=== PATIENT | female | born 1985 | race Caucasian/White ===

== ENCOUNTER → 2016-06-29 | Outpatient (REF) | payer OTHER | LOC: M LAB REF 09:36 | PROVIDERS: ATTEND Physician Assistant | DX: L03.114 Cellulitis of left upper limb (principal) ==

== ENCOUNTER 2016-07-29 11:45 | Emergency (ER) | payer OTHER ==
[2016-07-29] MEDS ORDERED: KETOROLAC 30 MG/ML VIAL (J1885) As Ordered ONE (12:53)
[2016-07-29] MEDS ORDERED: diphenhydrAMINE INJ 50MG/ML VIAL (J1200) As Ordered ONE (12:53)
[2016-07-29] MEDS ORDERED: METOCLOPRAMIDE INJ 10MG/2ML VIAL (J2765) As Ordered ONE (12:53)
--- NOTE | 2016-07-29 13:29 | REP ---
Head CT without contrast: History: Severe headache. Comparison study: No comparison. CT findings: Bone window settings demonstrate an intact bony calvarium. There is no evidence of skull fracture or incidental bony calvarial lesion. The visualized paranasal sinuses appear clear. No intraorbital abnormality is seen. On soft tissue window setting images; the lateral, third, and fourth ventricles are normal in size and position. Wayne-white differentiation pattern is normal above and below the tentorium. There are is no evidence of intracranial hemorrhage. No mass, edema, infarction, or midline shift is seen. No extra-axial fluid collection is appreciated. Impression: Negative noncontrast head CT. Signed by Aquiles Law MD 07/29/2016 01:21 P
--- NOTE | 2016-07-29 13:51 | EDDOCDS ---
Physician Documentation [facility] Name: Gema Gutierres Age: 31 yrs Sex: Female : 1985 Arrival Date: 07/29/2016 Time: 11:45 Bed I4 / M4 Private MD: [facility] - Adults Disposition: 07/29/16 13:36 Discharged to Home/Self Care. Impression: Headache. - Condition is Stable. - Discharge Instructions: General Headache Without Cause, [id number]. - Prescriptions for etodolac 200 mg Oral Capsule - take 1 capsule by ORAL route 3 times per day; 30 capsule. Robaxin- 750 750 mg Oral Tablet - take 1 tablet by ORAL route every 6 hours As needed; 40 tablet. - Medication Reconciliation, Local Pharmacy Hours form. - Follow up: [facility] - Ad[facility]; When: Call to arrange an appointment; Reason: Further diagnostic work-up, Recheck today's complaints, Continuance of care. - Problem is new. - Symptoms have improved. Historical: - Allergies: BELLADONNA ALKALOIDS (unk); (Hives); Wellbutrin (Hives); Neurontin (mood swings ); - Home Meds: 1. meloxicam 15 mg oral tab 1 tab once daily 2. baclofen 10 mg Oral tab 1 tab HS 3. omeprazole 40 mg Oral cpDR 1 cap once daily 4. cetirizine 10 mg oral tab 1 tab once daily 5. Cymbalta 60 mg Oral cpDR 1 cap once daily 6. Breo Ellipta 200-25 mcg/dose inhalation dsdv 1 puff once daily - PMHx: GERD; Depression; Anxiety; chronic neck pain; - PSHx: ; - Social history: Smoking status: Patient states was never smoker of tobacco. Patient uses No barriers to communication noted, The patient speaks fluent Azeri, Speaks appropriately for age. - Family history: Not pertinent. - : The pt / caregiver states he / she is not on anticoagulants. Home medication list is obtained from the patient. - Exposure Risk Screening:: None identified. 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 1 in. (154.94 cm) (R); Pain 10/; 13:43 BP 125 / 70 RA Sitting (auto/lg); Pulse 70; Resp 20; Temp 97.5(O); Pulse Ox 97% on R/A; bnb Pain 8/10; 11:47 Body Mass Index 40.06 (96.16 kg, 154.94 cm) jrd MDM: 12:44 IV Saline Lock ordered. btw 12:44 Metoclopramide 20 mg IV at 80 mg/hr once over 15 mins ordered. btw 12:44 diphenhydrAMINE 50 mg IVP once ordered. btw 12:44 ketorolac 30 mg IVP once ordered. btw 12:45 CT Head Without Contrast Ordered. EDMS 13:47 Financial registration complete. lg Administered Medications: 13:07 Drug: diphenhydrAMINE 50 mg [diphenhydramine 50 mg/mL injection solution (1 mL)] Route: jmk IVP; Site: right antecubital; 13:35 Follow up: Response: Pain is decreased kc3 13:07 Drug: ketorolac 30 mg [ketorolac 30 mg/mL (1 mL) injection solution (1 mL)] Route: IVP; jmk Site: right antecubital; 13:35 Follow up: Response: Pain is decreased kc3 13:08 Drug: Metoclopramide 20 mg [metoclopramide 5 mg/mL injection solution] Route: IV; Rate: jmk 80 mg/hr; Infused Over: 15 mins; Site: right antecubital; 13:35 Follow up: IV Status: Completed infusion kc3 Signatures: Dispatcher MedHost EDMS Roney Madrigal,Orlando Cheema RN, Reg Reg lg Tatianna SandovalRN RN Raffaele Pedroza PA PA btw Nidhi Call RN RN kc3 MTDD
--- NOTE | 2016-07-29 13:51 | EDDOCDS ---
Nurse's Notes [facility] Name: Gema Gutierres Age: 31 yrs Sex: Female : 1985 Arrival Date: 07/29/2016 Time: 11:45 Bed I4 / M4 Private MD: [facility] - [facility] Diagnosis: Headache Presentation: 07/29 11:51 Presenting complaint: Patient states: Has had severe GUERRERO which started this morning. jo3 Just told PCP that Has are becoming more frequent and more intense. Pt was at work when this one started. This patient has no additional risk factors. Adult Sepsis Screening: The patient does not have new or worsening altered mentation. Patient's respiratory rate is less than 22. Systolic blood pressure is greater than 100. Patient has a qSOFA score of 0- Negative Sepsis Screen. Suicide/Homicide risk assessment- the patient denies having any suicidal and/or homicidal ideations and does not present with any other emotional, behavioral or mental health complaints. 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 Transition of care: patient was not received from another setting of care. 11:51 Acuity: BRIJESH Level 3 jo3 11:51 Method Of Arrival: Walkin/Carried/Asstd jo3 Triage Assessment: 11:57 Headache History: This headache is more severe than any previous headaches the patient jo3 has experienced. General: Appears in no apparent distress, Behavior is appropriate for age, cooperative. HIV screening NA for this visit Offered previously. Neurological: Level of Consciousness is awake, alert, Oriented to person, place, time. 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 meloxicam 15 mg oral tab 1 tab once daily 2. baclofen 10 mg Oral tab 1 tab HS 3. omeprazole 40 mg Oral cpDR 1 cap once daily 4. cetirizine 10 mg oral tab 1 tab once daily 5. Cymbalta 60 mg Oral cpDR 1 cap once daily 6. Breo Ellipta 200-25 mcg/dose inhalation dsdv 1 puff once daily - PMHx: GERD; Depression; Anxiety; chronic neck pain; - PSHx: ; - Social history: Smoking status: Patient states was never smoker of tobacco. Patient uses No barriers to communication noted, The patient speaks fluent [place], Speaks appropriately for age. - Family history: Not pertinent. - : The pt / caregiver states he / she is not on anticoagulants. Home medication list is obtained from the patient. - Exposure Risk Screening:: None identified. Screenin:08 Screening information is obtained from the patient. Fall risk: No risks identified. jmk Assistance ADL's: requires no assistance with activities of daily living. Abuse/DV Screen: The patient / caregiver reports he/she is: not in a situation that causes fear, pain or injury. Nutritional screening: No deficits noted. Advance Directives: Currently, there is no health care proxy. There is no active DNR order. There is no living will. There is no Power of Sfdc Architect. home support is adequate. Assessment: 13:08 General: Appears dramatic presentation. alert and oriented x 3. Indicates pain across jmk forehead that goes into occiptal region. describes 10/10 discomfort, but demeanor does not support.. Neurological: Level of Consciousness is awake, alert, Oriented to person, place, time. 13:49 General: Appears in no apparent distress, comfortable, Behavior is appropriate for age, kc3 cooperative. Pain: Pain currently is 7 out of 10 on a pain scale. Also complains of no other associated symptoms. Neurological: Level of Consciousness is awake, alert, obeys commands. Respiratory: Respiratory effort is even, unlabored. Derm: Skin is pink, warm & dry. Vital Signs: 11:47 BP 153 / 91; Pulse 86; Resp 18; Temp 98.2; Pulse Ox 98% on R/A; Weight 96.16 kg (R); jrd Height 5 ft. 1 in. (154.94 cm) (R); Pain 10/10; 13:43 BP 125 / 70 RA Sitting (auto/lg); Pulse 70; Resp 20; Temp 97.5(O); Pulse Ox 97% on R/A; bnb Pain 8/10; 11:47 Body Mass Index 40.06 (96.16 kg, 154.94 cm) [facility] Vitals: 11:47 Log In Time: July 29, 2016 at 11:40. [facility] ED Course: 11:46 Patient visited by Gio Rico PCA. jrd 11:46 Patient moved to Waiting jrd 11:47 [facility] is Private Physician. jrd 11:48 Patient visited by Gio Rico PCA. jrd 11:48 Patient moved to Pre RCE jrd 11:53 Triage Initiated jo3 11:58 Patient visited by Tatianna Sandoval RN. jo3 12:26 Patient moved to Triage 3 ck1 12:30 Patient visited by Paula Palumbo RN. ck1 12:40 Raffaele Hernandez PA is PHCP. btw 12:40 Varinder Byrne MD is Attending Physician. btw 12:40 Patient visited by Raffaele Hernandez PA. btw 12:45 Patient moved to I4 / M4 ck1 13:11 Inserted saline lock: 20 gauge in right antecubital area. jmk 13:35 Patient visited by Nidhi Call RN. kc3 13:35 [facility] is Referral Physician. btw 13:43 Patient visited by Soraya Navas PCA. bnb 13:50 The patient / caregiver is instructed regarding the plan of care and ED course. kc3 13:50 Discontinued IV lock intact, bleeding controlled, pressure dressing applied, No kc3 redness/swelling at site. No procedures done that require assistance. Administered Medications: 13:07 Drug: diphenhydrAMINE 50 mg [diphenhydramine 50 mg/mL injection solution (1 mL)] Route: jmk IVP; Site: right antecubital; 13:35 Follow up: Response: Pain is decreased kc3 13:07 Drug: ketorolac 30 mg [ketorolac 30 mg/mL (1 mL) injection solution (1 mL)] Route: IVP; jmk Site: right antecubital; 13:35 Follow up: Response: Pain is decreased kc3 13:08 Drug: Metoclopramide 20 mg [metoclopramide 5 mg/mL injection solution] Route: IV; Rate: jmk 80 mg/hr; Infused Over: 15 mins; Site: right antecubital; 13:35 Follow up: IV Status: Completed infusion kc3 Order Results: There are currently no results for this order. Outcome: 13:36 Discharge ordered by Provider. btw 13:50 Discharge Assessment: Patient awake, alert and oriented x 3. No cognitive and/or kc3 functional deficits noted. Patient verbalized understanding of disposition instructions. patient administered narcotics - no. The following High Risk Discharge criteria are identified: None. Discharged to home ambulatory. Condition: stable. Discharge instructions given to patient, Instructed on discharge instructions, follow up and referral plans. medication usage, Demonstrated understanding of instructions, medications, Pt was receptive of discharge instructions/ teaching. Prescriptions given X 2. CT Study completed. Property :Personal belongings accompany Pt. 13:50 Patient left the ED. kc3 Signatures: Roney Madrigal,RN RN Paula MonroyRN RN ck1 Tatianna SandovalRN RN francisco j3 Raffaele Hernandez, KENNETH PA btw Gio Rico, DEFENSIVE DRIVING INSTRUCTOR DEFENSIVE DRIVING INSTRUCTOR jrd Nidhi Call,RN RN kc3 Soraya Navas, DEFENSIVE DRIVING INSTRUCTOR DEFENSIVE DRIVING INSTRUCTOR bnb MTDKarsten
--- NOTE | 2016-07-31 14:52 | EDDOCDS ---
Nurse's Notes [facility] Name: Gema Gutierres Age: 31 yrs Sex: Female : 1985 Arrival Date: 07/29/2016 Time: 11:45 Bed I4 / M4 Private MD: [facility] - Adults Diagnosis: Headache Presentation: 07/29 11:51 Presenting complaint: Patient states: Has had severe GUERRERO which started this morning. jo3 Just told PCP that Has are becoming more frequent and more intense. Pt was at work when this one started. This patient has no additional risk factors. Adult Sepsis Screening: The patient does not have new or worsening altered mentation. Patient's respiratory rate is less than 22. Systolic blood pressure is greater than 100. Patient has a qSOFA score of 0- Negative Sepsis Screen. Suicide/Homicide risk assessment- the patient denies having any suicidal and/or homicidal ideations and does not present with any other emotional, behavioral or mental health complaints. 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 Transition of care: patient was not received from another setting of care. 11:51 Acuity: BRIJESH Level 3 jo3 11:51 Method Of Arrival: Walkin/Carried/Asstd jo3 Triage Assessment: 11:57 Headache History: This headache is more severe than any previous headaches the patient jo3 has experienced. General: Appears in no apparent distress, Behavior is appropriate for age, cooperative. HIV screening NA for this visit Offered previously. Neurological: Level of Consciousness is awake, alert, Oriented to person, place, time. 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 meloxicam 15 mg oral tab 1 tab once daily 2. baclofen 10 mg Oral tab 1 tab HS 3. omeprazole 40 mg Oral cpDR 1 cap once daily 4. cetirizine 10 mg oral tab 1 tab once daily 5. Cymbalta 60 mg Oral cpDR 1 cap once daily 6. Breo Ellipta 200-25 mcg/dose inhalation dsdv 1 puff once daily - PMHx: GERD; Depression; Anxiety; chronic neck pain; - PSHx: ; - Social history: Smoking status: Patient states was never smoker of tobacco. Patient uses No barriers to communication noted, The patient speaks fluent [place] Zealander, Speaks appropriately for age. - Family history: Not pertinent. - : The pt / caregiver states he / she is not on anticoagulants. Home medication list is obtained from the patient. - Exposure Risk Screening:: None identified. Screenin:08 Screening information is obtained from the patient. Fall risk: No risks identified. jmk Assistance ADL's: requires no assistance with activities of daily living. Abuse/DV Screen: The patient / caregiver reports he/she is: not in a situation that causes fear, pain or injury. Nutritional screening: No deficits noted. Advance Directives: Currently, there is no health care proxy. There is no active DNR order. There is no living will. There is no Power of Conservator Artifacts. home support is adequate. Assessment: 13:08 General: Appears dramatic presentation. alert and oriented x 3. Indicates pain across jmk forehead that goes into occiptal region. describes 10/10 discomfort, but demeanor does not support.. Neurological: Level of Consciousness is awake, alert, Oriented to person, place, time. 13:49 General: Appears in no apparent distress, comfortable, Behavior is appropriate for age, kc3 cooperative. Pain: Pain currently is 7 out of 10 on a pain scale. Also complains of no other associated symptoms. Neurological: Level of Consciousness is awake, alert, obeys commands. Respiratory: Respiratory effort is even, unlabored. Derm: Skin is pink, warm & dry. Vital Signs: 11:47 BP 153 / 91; Pulse 86; Resp 18; Temp 98.2; Pulse Ox 98% on R/A; Weight 96.16 kg (R); jrd Height 5 ft. 1 in. (154.94 cm) (R); Pain 10/10; 13:43 BP 125 / 70 RA Sitting (auto/lg); Pulse 70; Resp 20; Temp 97.5(O); Pulse Ox 97% on R/A; bnb Pain 8/10; 11:47 Body Mass Index 40.06 (96.16 kg, 154.94 cm) [facility] Vitals: 11:47 Log In Time: July 29, 2016 at 11:40. [facility] ED Course: 11:46 Patient visited by Gio Rico PCA. jrd 11:46 Patient moved to Waiting jrd 11:47 [facility] is Private Physician. jrd 11:48 Patient visited by Gio Rico PCA. jrd 11:48 Patient moved to Pre RCE jrd 11:53 Triage Initiated jo3 11:58 Patient visited by Tatianna Sandoval,DEBBIE. jo3 12:26 Patient moved to Triage 3 ck1 12:30 Patient visited by Paula Palumbo,DEBBIE. ck1 12:40 Raffaele Hernandez PA is PHCP. btw 12:40 Varinder Byrne MD is Attending Physician. btw 12:40 Patient visited by Raffaele Hernandez PA. btw 12:45 Patient moved to I4 / M4 ck1 13:11 Inserted saline lock: 20 gauge in right antecubital area. jmk 13:35 Patient visited by Nidhi Call RN. kc3 13:35 [facility] is Referral Physician. btw 13:43 Patient visited by Soraya Navas PCA. bnb 13:50 The patient / caregiver is instructed regarding the plan of care and ED course. kc3 13:50 Discontinued IV lock intact, bleeding controlled, pressure dressing applied, No kc3 redness/swelling at site. No procedures done that require assistance. 14:18 CT Head Without Contrast Returned. EDMS 15:03 T-Sheet-- Draft Copy was scanned into ViewCast and attached to record. gb 15:22 Patient name changed from Gema\S\\S\Bhavik\S\ to Gema\S\Roney\S\Bhavik. EDMS 15:27 [facility] Payment Agreement was scanned into ViewCast and attached to record. lg Administered Medications: 13:07 Drug: diphenhydrAMINE 50 mg [diphenhydramine 50 mg/mL injection solution (1 mL)] Route: chauncey IVP; Site: right antecubital; 13:35 Follow up: Response: Pain is decreased kc3 13:07 Drug: ketorolac 30 mg [ketorolac 30 mg/mL (1 mL) injection solution (1 mL)] Route: IVP; chauncey Site: right antecubital; 13:35 Follow up: Response: Pain is decreased kc3 13:08 Drug: Metoclopramide 20 mg [metoclopramide 5 mg/mL injection solution] Route: IV; Rate: jmk 80 mg/hr; Infused Over: 15 mins; Site: right antecubital; 13:35 Follow up: IV Status: Completed infusion kc3 Order Results: Radiology Order: CT Head Without Contrast Test: CT Head Without Contrast REASON FOR EXAMINATION: Worst GUERRERO of life; Head CT without contrast:; ; History: Severe headache.; ; Comparison study: No comparison.; ; CT findings: Bone window settings demonstrate an intact bony calvarium. There; is no evidence of skull fracture or incidental bony calvarial lesion. The; visualized paranasal sinuses appear clear. No intraorbital abnormality is seen.; On soft tissue window setting images; the lateral, third, and fourth ventricles; are normal in size and position. Wayne-white differentiation pattern is normal; above and below the tentorium. There are is no evidence of intracranial; hemorrhage. No mass, edema, infarction, or midline shift is seen. No; extra-axial fluid collection is appreciated.; ; Impression:; ; Negative noncontrast head CT.; ; ; Signed by; Aquiles Law MD 07/29/2016 01:21 P; Outcome: 13:36 Discharge ordered by Provider. btw 13:50 Discharge Assessment: Patient awake, alert and oriented x 3. No cognitive and/or kc3 functional deficits noted. Patient verbalized understanding of disposition instructions. patient administered narcotics - no. The following High Risk Discharge criteria are identified: None. Discharged to home ambulatory. Condition: stable. Discharge instructions given to patient, Instructed on discharge instructions, follow up and referral plans. medication usage, Demonstrated understanding of instructions, medications, Pt was receptive of discharge instructions/ teaching. Prescriptions given X 2. CT Study completed. Property :Personal belongings accompany Pt. 13:50 Patient left the ED. kc3 Signatures: Dispatcher MedHost EDMS Roney Madrigal,RN RN Sonia London, Reg Reg gb Orlando Wheeler, Reg Reg lg Paula PalumboRN RN ck1 Tatianna SandovalRN RN francisco j3 Raffaele Hernandez PA PA btw Gio Rico, MORTEZA JEEPER OPERATOR d Nidhi Call RN RN kc3 Soraya Navas, JEEPER OPERATOR JEEPER OPERATOR bnb Chart Complete MTDD
--- NOTE | 2016-07-31 14:52 | EDDOCDS ---
Physician Documentation [facility] Name: Gema Gutierres Age: 31 yrs Sex: Female : 1985 Arrival Date: 07/29/2016 Time: 11:45 Bed I4 / M4 Private MD: [facility] - [facility] Disposition: 07/29/16 13:36 Discharged to Home/Self Care. Impression: Headache. - Condition is Stable. - Discharge Instructions: General Headache Without Cause, [id number]. - Prescriptions for etodolac 200 mg Oral Capsule - take 1 capsule by ORAL route 3 times per day; 30 capsule. Robaxin- 750 750 mg Oral Tablet - take 1 tablet by ORAL route every 6 hours As needed; 40 tablet. - Medication Reconciliation, Local Pharmacy Hours form. - Follow up: [facility] - Adults; When: Call to arrange an appointment; Reason: Further diagnostic work-up, Recheck today's complaints, Continuance of care. - Problem is new. - Symptoms have improved. Historical: - Allergies: BELLADONNA ALKALOIDS (unk); (Hives); Wellbutrin (Hives); Neurontin (mood swings ); - Home Meds: 1. meloxicam 15 mg oral tab 1 tab once daily 2. baclofen 10 mg Oral tab 1 tab HS 3. omeprazole 40 mg Oral cpDR 1 cap once daily 4. cetirizine 10 mg oral tab 1 tab once daily 5. Cymbalta 60 mg Oral cpDR 1 cap once daily 6. Breo Ellipta 200-25 mcg/dose inhalation dsdv 1 puff once daily - PMHx: GERD; Depression; Anxiety; chronic neck pain; - PSHx: ; - Social history: Smoking status: Patient states was never smoker of tobacco. Patient uses No barriers to communication noted, The patient speaks fluent Setswana, Speaks appropriately for age. - Family history: Not pertinent. - : The pt / caregiver states he / she is not on anticoagulants. Home medication list is obtained from the patient. - Exposure Risk Screening:: None identified. 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 1 in. (154.94 cm) (R); Pain 10/10; 13:43 BP 125 / 70 RA Sitting (auto/lg); Pulse 70; Resp 20; Temp 97.5(O); Pulse Ox 97% on R/A; bnb Pain 8/10; 11:47 Body Mass Index 40.06 (96.16 kg, 154.94 cm) jrd MDM: 12:44 IV Saline Lock ordered. btw 12:44 Metoclopramide 20 mg IV at 80 mg/hr once over 15 mins ordered. btw 12:44 diphenhydrAMINE 50 mg IVP once ordered. btw 12:44 ketorolac 30 mg IVP once ordered. btw 12:45 CT Head Without Contrast Ordered. EDMS 13:47 Financial registration complete. lg 15:03 T-Sheet-- Draft Copy was scanned into [employer] Return and attached to record. gb 15:27 [facility] Payment Agreement was scanned into [employer] Return and attached to record. lg Administered Medications: 13:07 Drug: diphenhydrAMINE 50 mg [diphenhydramine 50 mg/mL injection solution (1 mL)] Route: k IVP; Site: right antecubital; 13:35 Follow up: Response: Pain is decreased kc3 13:07 Drug: ketorolac 30 mg [ketorolac 30 mg/mL (1 mL) injection solution (1 mL)] Route: IVP; jmk Site: right antecubital; 13:35 Follow up: Response: Pain is decreased kc3 13:08 Drug: Metoclopramide 20 mg [metoclopramide 5 mg/mL injection solution] Route: IV; Rate: jmk 80 mg/hr; Infused Over: 15 mins; Site: right antecubital; 13:35 Follow up: IV Status: Completed infusion kc3 Signatures: Dispatcher MedHost EDMS Roney Madrigal,RN RN Sonia London, Reg Reg gb Orlando Wheeler, Reg Reg lg Tatianna Sandoval RN RN jo3 Raffaele Hernandez PA PA btw Nidhi Call,RN RN kc3 The chart was reviewed and I authenticate all verbal orders and agree with the evaluation and treatment provided.Attachments: 15:03 T-Sheet-- Draft Copy gb 15:27 [facility] Payment Agreement lg Chart Complete MTDD
--- NOTE | 2016-07-31 14:52 | EDDOCDS ---
Physician Documentation [facility] Name: Gema Gutierres Age: 31 yrs Sex: Female : 1985 Arrival Date: 07/29/2016 Time: 11:45 Bed I4 / M4 Private MD: [facility] Disposition: 07/29/16 13:36 Discharged to Home/Self Care. Impression: Headache. - Condition is Stable. - Discharge Instructions: General Headache Without Cause, [id number]. - Prescriptions for etodolac 200 mg Oral Capsule - take 1 capsule by ORAL route 3 times per day; 30 capsule. Robaxin- 750 750 mg Oral Tablet - take 1 tablet by ORAL route every 6 hours As needed; 40 tablet. - Medication Reconciliation, Local Pharmacy Hours form. - Follow up: [facility]; When: Call to arrange an appointment; Reason: Further diagnostic work-up, Recheck today's complaints, Continuance of care. - Problem is new. - Symptoms have improved. Historical: - Allergies: BELLADONNA ALKALOIDS (unk); (Hives); Wellbutrin (Hives); Neurontin (mood swings ); - Home Meds: 1. meloxicam 15 mg oral tab 1 tab once daily 2. baclofen 10 mg Oral tab 1 tab HS 3. omeprazole 40 mg Oral cpDR 1 cap once daily 4. cetirizine 10 mg oral tab 1 tab once daily 5. Cymbalta 60 mg Oral cpDR 1 cap once daily 6. Breo Ellipta 200-25 mcg/dose inhalation dsdv 1 puff once daily - PMHx: GERD; Depression; Anxiety; chronic neck pain; - PSHx: ; - Social history: Smoking status: Patient states was never smoker of tobacco. Patient uses No barriers to communication noted, The patient speaks fluent Faroese, Speaks appropriately for age. - Family history: Not pertinent. - : The pt / caregiver states he / she is not on anticoagulants. Home medication list is obtained from the patient. - Exposure Risk Screening:: None identified. AIR TESTER: 07/29 11:57 LMP 07/14/2016 jo3 Vital Signs: 11:47 BP 153 / 91; Pulse 86; Resp 18; Temp 98.2; Pulse Ox 98% on R/A; Weight 96.16 kg / 212 jrd lbs (R); Height 5 ft. 1 in. (154.94 cm) (R); Pain 10/10; 13:43 BP 125 / 70 RA Sitting (auto/lg); Pulse 70; Resp 20; Temp 97.5(O); Pulse Ox 97% on R/A; bnb Pain 8/10; 11:47 Body Mass Index 40.06 (96.16 kg, 154.94 cm) jrd MDM: 12:44 IV Saline Lock ordered. btw 12:44 Metoclopramide 20 mg IV at 80 mg/hr once over 15 mins ordered. btw 12:44 diphenhydrAMINE 50 mg IVP once ordered. btw 12:44 ketorolac 30 mg IVP once ordered. btw 12:45 CT Head Without Contrast Ordered. EDMS 13:47 Financial registration complete. lg 15:03 T-Sheet-- Draft Copy was scanned into [employer] and attached to record. gb 15:27 [facility] Payment Agreement was scanned into [employer] and attached to record. lg Administered Medications: 13:07 Drug: diphenhydrAMINE 50 mg [diphenhydramine 50 mg/mL injection solution (1 mL)] Route: k IVP; Site: right antecubital; 13:35 Follow up: Response: Pain is decreased kc3 13:07 Drug: ketorolac 30 mg [ketorolac 30 mg/mL (1 mL) injection solution (1 mL)] Route: IVP; jmk Site: right antecubital; 13:35 Follow up: Response: Pain is decreased kc3 13:08 Drug: Metoclopramide 20 mg [metoclopramide 5 mg/mL injection solution] Route: IV; Rate: jmk 80 mg/hr; Infused Over: 15 mins; Site: right antecubital; 13:35 Follow up: IV Status: Completed infusion kc3 Signatures: Dispatcher [employer] EDMS Roney Madrigal,RN RN Sonia London, Reg Reg gb Orlando Wheeler, Reg Reg lg Tatianna Sandoval RN RN jo3 Raffaele Hernandez PA PA btw Nidhi Call,RN RN kc3 The chart was reviewed and I authenticate all verbal orders and agree with the evaluation and treatment provided.Attachments: 15:03 T-Sheet-- Draft Copy gb 15:27 [facility] Payment Agreement lg Chart Complete MTDD
== END 2016-07-29 13:50 | disposition home or self-care (01) ==
LOC: M ED 11:45
DX: R51 Headache (principal); K21.9 Gastro-esophageal reflux disease without esophagitis; F32.9 Major depressive disorder, single episode, unspecified; F41.9 Anxiety disorder, unspecified; M54.2 Cervicalgia; Z79.899 Other long term (current) drug therapy; Z79.51 Long term (current) use of inhaled steroids; Z88.8 Allergy status to other drugs, medicaments and biological substances
CPT/HCPCS: 70450; 96365; 96375; 99284; J1200; J1885; J2765

== ENCOUNTER → 2018-08-30 | Outpatient (REF) | payer OTHER ==
[2018-09-01 14:24] LABS: HPV HYBRID CAPTURE II Negative (Negative)
== END ==
LOC: M LAB REF 17:21
PROVIDERS: ATTEND Advanced Practice Midwife
DX: Z12.4 Encounter for screening for malignant neoplasm of cervix (principal)